=== PATIENT | male | born 1940 | race Caucasian/White ===

== ENCOUNTER → 2017-09-24 | Outpatient (CLI) | payer BC, OTHER ==
--- NOTE | 2017-09-24 15:32 | RADRPT ---
EXAM DATE: 09/24/2017 3:28 PM EDT AGE/SEX: 77 years / Male INDICATIONS: Dementia with lewy bodies. Small handwriting, hallucinations, right hand tremors, slow processing disorder and loss of balance. CLINICAL DATA: This is the patient's initial encounter. Patient reports that signs and symptoms have been present for 1 day and indicates a pain score of 0/10. MEDICAL/SURGICAL HISTORY: Diabetes mellitus type II. Skin cancer. . Hernia repair and skin can cer removal. COMPARISON: No prior [facility] exams available for comparison. No external comparison. DOSE: 5.0 mCi Ioflupane Iodine-123 in 2.5ml total volume. MEDICATION(S): 130 mg Potasium Iodine PO one hour prior to injection. IMAGING: Spect/CT imaging with fusion was performed. SPECT IMAGIN.5 hours RADIATION DOSE: 30.27 CTDI vol(mGy) TECHNIQUE: SPECT imaging of the brain was performed in sagittal, axial and coronal planes. Attenuati on correction was performed with computed tomography and both the attenuation correction and non-atte nuation corrected data sets were reviewed. FINDINGS: Asymmetric, misshapen areas of striatal uptake. CONCLUSION: Abnormal scan Electronically signed by: Tima Townsend MD 09/24/2017 3:31 PM EDT
== END ==
LOC: HRAD 08:49
DX: G31.83 Neurocognitive disorder with Lewy bodies (principal)
CPT/HCPCS: 78607; A9584